=== PATIENT | female | born 1960 | race Caucasian/White ===

== ENCOUNTER → 2016-07-17 | Outpatient (CLI) | payer BC ==
--- NOTE | 2016-07-17 12:59 | DIAGNOSTIC IMAGING REPORT ---
RIGHT KNEE MRI HISTORY: RIGHT KNEE PAIN; INSTABILITY OF RIGHT KNEE Right COMPARISON STUDY: None. TECHNIQUE: Multiplanar multisequence MRI of the right knee was performed according to standard department protocol without the use of contrast. FINDINGS: Menisci: The lateral meniscus is intact. Truncated appearance to the body of the medial meniscus which is extruded from the joint space. This likely represents a free edge tear. There is also increased signal within the body of the medial meniscus consistent with degeneration. Ligaments: The anterior and posterior cruciate ligaments are intact. The medial and lateral collateral ligaments are normal in appearance. Extensor mechanism: The quadriceps tendon and patellar ligament are intact. Articular cartilage and bone: No fracture or dislocation. There are tricompartmental marginal osteophytes. There is 50% cartilage thinning at the medial patellofemoral compartment and within the medial compartment of the knee. Small amount of heterogeneous signal within the lateral femoral condyle consistent with mild chondromalacia. Joint effusion: Small. There is a 15 x 8 mm intra-articular loose body within the posterior joint space posterior to the ACL. Soft tissues: Intact. IMPRESSION: 1. Mild to moderate osteoarthritis within the knee as described above. 2. Small free of tear at the body of the medial meniscus. The medial meniscus is slightly extruded from the joint space. 3. Small joint effusion. 4. A 15 x 8 mm intra-articular loose body within the posterior joint space posterior to the ACL. Electronically signed by: Pelon Hernandez M.D. 07/17/2016 12:58 PM Dictated Date/Time: 07/17/2016 12:49 PM
== END ==
LOC: C.MRIBC 11:13
PROVIDERS: ATTEND Nurse Practitioner Family
DX: M25.561 Pain in right knee (principal); M25.361 Other instability, right knee; X58.XXXA Exposure to other specified factors, initial encounter; S83.241A Other tear of medial meniscus, current injury, right knee, initial encounter; M25.461 Effusion, right knee

== ENCOUNTER → 2016-08-06 | Outpatient (CLI) | payer BC | END | disposition home or self-care (01) | LOC: C.RDSM 12:08 | PROVIDERS: ATTEND Physical Medicine & Rehabilitation Sports Medicine | DX: M25.561 Pain in right knee (principal) ==

== ENCOUNTER → 2016-10-13 | Outpatient (CLI) | payer BC ==
[~2016-10-13] MED LIST: GADAVIST IV PRN
--- NOTE | 2016-10-14 13:56 | MAMMOGRAPHY REPORT ---
BREAST MRI OF BOTH BREASTS : 10/13/2016 CLINICAL HISTORY: History of bilateral mastectomies and implant reconstruction. Interval implant rev ision. COMPARISON: Comparison is made to exams dated: 09/28/2015 breast MRI, 03/30/2015 breast MRI, 12/08/2014 ultrasound, and 11/27/2014 breast MRI - [facility]. TECHNIQUE: Using a 1.5 Sol magnet and dedicated breast coil, multisequence axial images were obtain ed through the breasts. After uneventful IV administration of 7 mL of Gadavist, dynamic multiphase c ontrast-enhanced axial images, and sagittal postcontrast were obtained. Temporal subtraction axial i mages and 3-D MIP images are provided. Everything was then reviewed on a 3-D workstation, [employer]. Ad ditional axial and sagittal images were performed to assess implant integrity. FINDINGS: There is evidence of prior bilateral mastectomy and silicone implant reconstruction. There is a new right implant in place since the prior breast MRI dated 09/28/2015, and there is no longer evidence of intracapsular implant rupture. Currently, there is no evidence of intracapsular or extra capsular implant rupture bilaterally. No suspicious axillary, subpectoral or internal mammary lympha denopathy. The previously described focus of enhancement in the 9:00 right breast is less conspicuou s and not significantly enhancing compared to the prior MRIs. There is no evidence of a suspicious e nhancing mass in the subcutaneous tissues of the reconstructed breasts. No focal skin thickening is identified. IMPRESSION: ACR BI-RADS CATEGORY 2: BENIGN Status post bilateral mastectomy and implant reconstruction. Currently there is no evidence of intra capsular or extracapsular implant rupture bilaterally. No MRI evidence of malignancy or suspicious a xillary, subpectoral or intramammary lymphadenopathy. The patient will receive written notification of the results. Kanika Copeland M.D. ay/:10/13/2016 16:53:33 Journeyman Glazier: building services coordinator, [facility] letter sent: Normal 1/2 BI-RADS Code: ACR BI-RADS Category 2: Benign
== END | disposition home or self-care (01) ==
LOC: C.MRI 12:37
PROVIDERS: ATTEND Plastic Surgery
DX: T66.XXXS Radiation sickness, unspecified, sequela (principal); T85.49XD Other mechanical complication of breast prosthesis and implant, subsequent encounter; X58.XXXA Exposure to other specified factors, initial encounter

== ENCOUNTER → 2016-11-28 | Outpatient (CLI) | payer BC ==
[2016-11-28 10:00] LABS: BASO % 0.4 %; BASO ABS # 0.02 K/uL (0-0.2); COMPLETE YES; EOS % 2.5 %; HEMATOCRIT 41.7 % (37-47); IG% 0.2 %; LYMPH % 29.4 %; LYMPH ABS # 1.66 K/uL (1.2-3.4); MEAN CELL VOLUME 91.9 fL (80-100); MEAN CORPUSCULAR HEMOGLOBIN 30.4 pg (25-34); MEAN CORPUSCULAR HGB CONC 33.1 g/dl (32-36); MEAN PLATELET VOLUME 11.2 fL (7.4-10.4); MONO % 7.3 %; NEUT % 60.2 %; PLATELET COUNT 391 K/uL (130-400); RED BLOOD COUNT 4.54 M/uL (4.2-5.4); WHITE BLOOD COUNT 5.65 K/uL (4.8-10.8)
[2016-11-28 10:09] LABS: ALT/SGPT 25 U/L (12-78); AST/SGOT 24 U/L (15-37); BLOOD UREA NITROGEN 13 mg/dl (7-18); BUN/CREATININE RATIO 17.4 (10-20); CARBON DIOXIDE 26 mmol/L (21-32); CHLORIDE 106 mmol/L (98-107); CREATININE 0.77 mg/dl (0.60-1.20); GLUCOSE 91 mg/dl (70-99); SODIUM 140 mmol/L (136-145)
[2016-11-28 10:11] LABS: ALB/GLOB RATIO 1.1 (0.9-2); ALKALINE PHOSPHATASE 70 U/L (45-117)
== END | disposition home or self-care (01) ==
LOC: C.LAB1850 07:14
PROVIDERS: ATTEND Nurse Practitioner Family
DX: C50.919 Malignant neoplasm of unspecified site of unspecified female breast (principal)

== ENCOUNTER → 2017-03-27 | Outpatient (CLI) | payer OTHER | END | disposition home or self-care (01) | LOC: C.PAPS 09:57 | PROVIDERS: ATTEND Obstetrics & Gynecology | DX: Z01.419 Encounter for gynecological examination (general) (routine) without abnormal findings (principal) ==

== ENCOUNTER → 2017-10-13 | Day surgery (SDC) | payer OTHER ==
[2017-10-05 13:46] VITALS: Ht 162.6 cm; Wt 65.9 kg
[~2017-10-13] VITALS: Ht 162.6 cm; Wt 65.9 kg
[~2017-10-13] MED LIST changes: +ACETAMINOPHEN 325 MG TAB PO PRN; +CEFAZOLIN 1000MG IV PUSH 7.5 ML IV SCH; +CEFAZOLIN 2000MG IV PUSH 15 ML IV SCH; -GADAVIST IV PRN; +IBUPROFEN 600 MG TAB PO PRN; +LACTATED RINGER'S 1000ML 1,000 ML IV SCH; +LIDOCAINE HCL 1% 20 ML VIAL ONE; +SODIUM CHLORIDE 0.9% 1000ML 1,000 ML IV SCH
--- NOTE | 2017-10-13 11:40 | History & Physical Bridge - SC ---
H&P Re-Evaluation Bridge Note: I have examined the patient, reviewed the History & Physical and in the interval since the performance of the History & Physical I have noted the following changes of clinical significance: No changes noted
--- NOTE | 2017-10-13 12:02 | Discharge Instructions-SurgCtr ---
Discharge Instructions Date of Service Oct 13, 2017. Visit Reason for Visit: Skin Nodule, Left Mastectomy Scar; Hx Mastectomy Discharge Discharge Diagnosis / Problem: Lt chest wall mass Discharge Goals Goal(s): Decrease discomfort, Improve function, Improve disease control Activity Recommendations Activity Limitations: as noted below Lifting Limitations: no more than 25 pounds Exercise/Sports Limitations: until after follow-up appointment May Resume Sexual Activity: when tolerated Shower/Bathe: tomorrow Driving or Machine Use: no limitations Anesthesia . Post Anesthesia Instructions: If you have had General Anesthesia or IV Sedation: * Do not drive today. * Resume driving when surgeon permits. * Do not make important decisions or sign legal documents today. * Call surgeon for: 1. Temperature elevations greater than 101 degrees F. 2. Uncontrollable pain. 3. Excessive bleeding. 4. Persistent nausea and vomiting. 5. Medication intolerance (nausea, vomiting or rash). * For nausea and vomiting use only clear liquids such as: tea, soda, bouillon until nausea subsides, then gradually increase diet as tolerated. * If you have any concerns or questions, call your surgeon's office. If physician is unavailable and it is an emergency, call 911 or go to the nearest emergency room. . Instructions / Follow-Up Instructions / Follow-Up SPECIAL CARE INSTRUCTIONS: * Cover incisions and change daily for comfort/drainage. * May use ibuprofen for pain as tolerated. * Expect some swelling and bruising. Call your doctor if: * Temperature above 101 degrees * Pain not relieved by pain medicine ordered * There is increased drainage or redness from any incision * You have any unanswered questions or concerns [phone]. FOLLOW UP VISIT: If not already scheduled, please call the office for a follow-up visit. for next week- wound check OFFICE PHONE NUMBER: Dr. Staton Office Diet Recommendations Home Diet: resume previous diet Pending Studies Studies pending at discharge: no Medical Emergencies . Who to Call and When: Medical Emergencies: If at any time you feel your situation is an emergency, please call 911 immediately. . Non-Emergent Contact Non-Emergency issues call your: Primary Care Provider, Surgeon . . "Provider Documentation" section prepared by Junior Staton. .
--- NOTE | 2017-10-13 12:29 | [facility] Operative Report ---
Operative Report Operative Date Oct 13, 2017. Pre-Operative Diagnosis SKIN NODULE, LEFT MASTECTOMY SCAR, HISTORY OF MASTECTOMY Post-Operative Diagnosis SAME PREOP Procedure(s) Performed Left Breast Mastectomy Scar Biopsy Surgeon DR. Joshua ESCOBAR Facing Cutting Machine Operator Surgeon(s) KAYLA SIMON PA-C Estimated Blood Loss 5 cc Findings skin, subcu- fat- calcified implant capsule and what appeared to be the implant Specimens A. LEFT BREAST MASTECTOMY SCAR BIOPSY Drains None Anesthesia Type Local Complication(s) none Disposition Recovery Room / PACU I attest to the content of the Intraoperative Record and any orders documented therein. Any exceptions are noted below.
[2017-10-13 12:42] VITALS: BP 120/79; PULSE 59; TEMP 36.9; O2SAT 100
--- NOTE | 2017-10-13 13:30 | OPERATIVE REPORT ---
DATE OF OPERATION: 10/13/2017 NAME OF OPERATION: Left chest wall biopsy. PREOPERATIVE DIAGNOSIS: Status post mastectomy with left breast scar nodularity. POSTOPERATIVE DIAGNOSIS: Same. STAFF SURGEON: Junior Staton MD. CHIEF DEPUTY SHERIFF: Mariposa Croft PA-C ANESTHESIA: 1% plain lidocaine. DESCRIPTION OF PROCEDURE: Patient was brought in the operating room and placed on the operating room table in supine position. Her left chest was prepped and draped in the usual fashion. She had a mastectomy scar with an implant. The scar tissue in an area which had been previously manipulated was anesthetized using 1% plain lidocaine. Elliptical incision was made around this area carrying dissection down into the subcutaneous tissue, what appeared to be normal adipose tissue, and then below that, was significant scar calcification and capsule calcification over what appeared to be an implant. The implant did appear to be intact. I did not try to debride the calcification as it was relatively large. The tissue was sent for routine pathology, and then, the skin and subcutaneous tissue reapproximated using interrupted 4-0 Prolene suture. Dressing applied, and patient transferred to recovery area in stable condition. I attest to the content of the Intraoperative Record and any orders documented therein. Any exception s are noted below.
== END | disposition home or self-care (01) ==
LOC: X.SURG 10:54
PROVIDERS: ATTEND Surgery
DX: R22.2 Localized swelling, mass and lump, trunk (principal); Z86.73 Personal history of transient ischemic attack (TIA), and cerebral infarction without residual deficits; Z90.10 Acquired absence of unspecified breast and nipple; Z83.49 Family history of other endocrine, nutritional and metabolic diseases; Z82.49 Family history of ischemic heart disease and other diseases of the circulatory system; Z80.1 Family history of malignant neoplasm of trachea, bronchus and lung; Z80.42 Family history of malignant neoplasm of prostate